=== PATIENT | male | born 1955 | race Caucasian/White ===

== ENCOUNTER 2018-03-01 09:47 | Inpatient (IN) | payer OTHER ==
[~2018-03-01] VITALS: Ht 167.6 cm; Wt 70.4 kg
[~2018-03-01 09:47] MED LIST: LEVO150T5 PO
[2018-03-01] MEDS ORDERED: LACTATED RINGERS 1,000 ML IV SCH (10:11)
[2018-03-01] MEDS ORDERED: MIDAZOLAM 1 MG/ML, 2ML ONE (10:13)
[2018-03-01] MEDS ORDERED: FENTANYL PF 250 MCG/5ML ONE (10:14)
[2018-03-01] MEDS ORDERED: METOCLOPRAMIDE 10MG TABLET PO ONE (10:30)
[2018-03-01] MEDS ORDERED: GABAPENTIN 300 MG CAPSULE PO ONE (10:30)
[2018-03-01] MEDS ORDERED: ONDANSETRON ODT 8 MG PO ONE (10:30)
[2018-03-01] MEDS ORDERED: TAMSULOSIN 0.4 MG CAP.ER.24H PO ONE (10:30)
[2018-03-01] MEDS ORDERED: FAMOTIDINE 20 MG TABLET PO ONE (10:30)
[2018-03-01] MEDS ORDERED: ACETAMINOPHEN 500 MG TABLET PO ONE (10:30)
[2018-03-01 10:46] VITALS: BP 148/88
[2018-03-01] MEDS ORDERED: THROMBIN 5,000 UNIT VIAL TP ONE ×2 (11:23→12:36)
[2018-03-01] MEDS ORDERED: BUPIVACAINE 0.25% ONE (11:23)
[2018-03-01] MEDS ORDERED: EPINEPHRINE 1 MG/ML, 1ML ONE (11:24)
[2018-03-01] MEDS ORDERED: PHENYLEPHRINE 10 MG/ML ONE (11:38)
[2018-03-01] MEDS ORDERED: ROCURONIUM 10 MG/ML,10ML ONE (11:38)
[2018-03-01] MEDS ORDERED: PROPOFOL 10 MG/ML, 20ML ONE (11:38)
[2018-03-01] MEDS ORDERED: GLYCOPYRROLATE 0.2MG/1ML, 5ML ONE (11:38)
[2018-03-01] MEDS ORDERED: NEOSTIGMINE 1 MG/ML, 10ML ONE (11:38)
[2018-03-01] MEDS ORDERED: SUCCINYLCHOLINE 20 MG/ML, 10ML ONE (11:38)
[2018-03-01] MEDS ORDERED: CEFAZOLIN 1,000 MG ONE (11:38)
[2018-03-01] MEDS ORDERED: KETAMINE 10 MG/ML, 20ML ONE (11:38)
[2018-03-01] MEDS ORDERED: DEXAMETHASONE 4 MG/ML, 1ML ONE (11:38)
[2018-03-01] MEDS ORDERED: BUPIVACAINE/PF-EPI 0.25% 1:200K INFIL ONE (12:35)
[2018-03-01] MEDS ORDERED: OXYcodone 5 MG/5 ML ORAL.SOL UDC PO PRN (15:00)
[2018-03-01] MEDS ORDERED: FENTANYL PF 100 MCG/2ML IV PRN (15:00)
[2018-03-01] MEDS ORDERED: ALBUTEROL SULFATE 2.5 MG/3 ML NPPB PRN (15:00)
[2018-03-01] MEDS ORDERED: PROMETHAZINE 25 MG/ML, 1ML IV PRN (15:00)
[2018-03-01] MEDS ORDERED: MORPHINE SULFATE 4 MG/ML, 1ML IVPush PRN (15:00)
[2018-03-01] MEDS ORDERED: EPHEDRINE 50 MG/ML, 1ML IM PRN (15:00)
[2018-03-01] MEDS ORDERED: OXYcodone 5 MG/5 ML ORAL.SOL UDC ONE (16:23)
[2018-03-01] MEDS ORDERED: MORPHINE SULFATE 4 MG/ML, 1ML ONE (16:23)
[2018-03-01 17:25] VITALS: BP 106/63
[2018-03-01] MEDS ORDERED: HYDROcodone/APAP 5/325 TABLET PO PRN (18:00)
[2018-03-01] MEDS ORDERED: TEMAZEPAM 15 MG CAPSULE PO PRN (18:00)
[2018-03-01] MEDS ORDERED: morphine SULFATE 10 MG/ML, 1ML IV PRN (18:00)
[2018-03-01] MEDS ORDERED: ONDANSETRON 2MG/ML, 2ML IV PRN (18:00)
[2018-03-01] MEDS: KETOROLAC 30 MG/1 ML IV SCH ×2 (18:16→23:38)
[2018-03-01 18:54] VITALS: BP 106/68
[2018-03-01] MEDS: CEFAZOLIN PMX 1GM/50ML 50 ML IVPB SCH (20:00)
[2018-03-01] MEDS: D5%-0.45NACL+KCL 20MEQ 1,000 ML IV SCH (20:37)
[2018-03-02 00:07] VITALS: BP 115/70
[2018-03-02 03:59] VITALS: BP 105/67
[2018-03-02] MEDS: CEFAZOLIN PMX 1GM/50ML 50 ML IVPB SCH (04:13)
[2018-03-02 05:01] LABS: ANION GAP 6 mmol/L (5-15); CALCIUM 7.9 mg/dL (8.5-10.1); CHLORIDE 108 mmol/L (98-107)
[2018-03-02 05:03] LABS: CREATININE 1.03 mg/dL (0.7-1.3)
[2018-03-02] MEDS ORDERED: LEVOTHYROXINE 25 MCG TABLET ONE (05:42)
[2018-03-02] MEDS ORDERED: LEVOTHYROXINE 125 MCG TABLET ONE (05:42)
[2018-03-02] MEDS: KETOROLAC 30 MG/1 ML IV SCH ×2 (05:46→12:17)
[2018-03-02] MEDS: D5%-0.45NACL+KCL 20MEQ 1,000 ML IV SCH (05:46)
[2018-03-02] MEDS ORDERED: LEVOTHYROXINE 150 MCG TABLET PO SCH (06:00)
[2018-03-02 09:10] VITALS: BP_SYST 100; BP_SYST 110; BP_DIAS 61; BP_DIAS 68
[2018-03-02] MEDS ORDERED: HYDR-3240 PO (14:23)
[2018-03-02 15:19] VITALS: BP 115/70
== END 2018-03-02 16:15 | disposition home or self-care (01) | DRG 708 ==
LOC: OUT 09:47 → 4NOR 17:20 → OUT 19:11 → ORIP 19:11 → 4NOR 21:49
PROVIDERS: ADMIT Urology; ATTEND Urology
PROC: 0VT34ZZ Resection of Bilateral Seminal Vesicles, Percutaneous Endoscopic Approach (ICD-10-PCS; 2018-03-01)
PROC: 8E0W4CZ Robotic Assisted Procedure of Trunk Region, Percutaneous Endoscopic Approach (ICD-10-PCS; 2018-03-01)
PROC: 0VBQ4ZZ Excision of Bilateral Vas Deferens, Percutaneous Endoscopic Approach (ICD-10-PCS; 2018-03-01)
PROC: 0VT04ZZ Resection of Prostate, Percutaneous Endoscopic Approach (ICD-10-PCS; principal; 2018-03-01 12:00)
DX: C61 Malignant neoplasm of prostate (principal); E03.9 Hypothyroidism, unspecified; Z80.1 Family history of malignant neoplasm of trachea, bronchus and lung; Z79.899 Other long term (current) drug therapy
CPT/HCPCS: 36415; 80048; 85014; 85018; 86850; 86900; 88305; 88309; C1729; J0171; J0690; J1100; J1885; J2250; J2704; J2710; J3010; J3490; Q0162; C1760; J0330; J2370; J3480; J7120